=== PATIENT | female | born 1980 | race American Indian/Alaskan Native ===

== ENCOUNTER 2021-07-25 12:05 | Inpatient (IN) ==
[2021-07-25] MEDS ORDERED: ACETAMINOPHEN 325 MG TABLET PO PRN (16:35)
[2021-07-25] MEDS ORDERED: GLUCAGON 1 MG VIAL IM PRN ×2 (16:35)
[2021-07-25] MEDS ORDERED: MORPHINE 2 MG/1 ML SYRINGE IV PRN (16:35)
[2021-07-25] MEDS ORDERED: DEXTROSE 50% 25 GM/50 ML VIAL IV PRN (16:35)
[2021-07-25] MEDS ORDERED: ONDANSETRON 4 MG/2 ML VIAL IV PRN (16:35)
[2021-07-25] MEDS ORDERED: PROMETHAZINE 25 MG/1 ML VIAL IM PRN (16:35)
[2021-07-25 17:36] LABS: Basophils # 0.1 10*3/uL (0.0-0.2); Basophils % 0.4 % (0.0-0.8); Eosinophils % 0.3 % (0.00-10.9); Hematocrit 31.1 VOL% (35.7-47.0); Hemoglobin 10.3 GM/DL (12.0-16.0); Immature Granulocytes % 0.5 %; Immature Granulocytes Absolute 0.06 #; Lymphocytes % 16.9 % (21.3-54.2); Mean Corpuscular HGB Conc 33.1 GM/DL (32-36); Mean Corpuscular Volume 85.9 FL (87-102); Mean Platelet Volume 8.9 FL (9.6-12.0); Monocytes # 0.6 10*3/uL (0.11-0.8); Monocytes % 4.7 % (1.7-12.7); Neutrophils % 77.2 % (38.7-73.9); Platelet Count 468 T/CUMM (130-400); Red Blood Count 3.62 MC/CUMM (3.8-5.5); Red Cell Distribution Width 13.4 % (9.3-17.3); White Blood Count 11.6 T/CUMM (4-12)
[2021-07-25 17:57] LABS: Osmolality,Calculated 294.3 MOS/KG (273-304); Potassium 3.4 MMOL/L (3.5-5.1)
[2021-07-25 18:20] LABS: % Iron Saturation 14.2 % (18-50)
[2021-07-25] MEDS ORDERED: DEXTROSE 10% 250 ML BAG IV PRN (18:43)
[2021-07-25] MEDS ORDERED: POTASSIUM CHLORIDE 20 MEQ TABLET PO ONE (19:00)
[2021-07-25] MEDS ORDERED: FUROSEMIDE 40 MG/4 ML VIAL IV SCH (19:00)
[2021-07-25] MEDS: HEPARIN 5,000 UNIT/1 ML VIAL SUBCUT SCH (19:40)
[2021-07-25] MEDS: INSULIN LISPRO 100 UNIT/ML SUBCUT SCH (21:32)
[2021-07-25] MEDS: hydrALAZINE 20 MG/1 ML VIAL IV PRN (22:19)
[2021-07-25 22:34] LABS: Glucose,Urine (UA) 250 mg/dL (Negative); Protein,Urine >=300 mg/dL (Negative); Urine Appearance Clear (Clear); Urine Color Yellow (Yellow); Urine Specific Gravity 1.025 (1.001-1.035)
[2021-07-25 22:35] LABS: Bilirubin,Urine Negative (Negative); Blood, Urine Small mg/dL (Negative); Ketones,Urine Trace mg/dL (Negative); Nitrite,Urine Negative (Negative); Urine Urobilinogen 0.2 eU/dL (<2.0)
[2021-07-25 22:37] LABS: RBC,Urine 8 /HPF (0-4); Squamous Epithelial Cell,Urine Occasional /HPF (0-10)
[2021-07-26 05:31] LABS: Basophils % 0.5 % (0.0-0.8); Eosinophils # 0.1 10*3/uL (0.0-0.87); Eosinophils % 1.7 % (0.00-10.9); Hematocrit 27.4 VOL% (35.7-47.0); Immature Granulocytes % 0.4 %; Immature Granulocytes Absolute 0.03 #; Lymphocytes # 1.8 10*3/uL (1.4-4.0); Mean Corpuscular HGB Conc 32.8 GM/DL (32-36); Mean Corpuscular Volume 87.3 FL (87-102); Mean Platelet Volume 9.1 FL (9.6-12.0); Monocytes # 0.6 10*3/uL (0.11-0.8); Monocytes % 7.4 % (1.7-12.7); Platelet Count 421 T/CUMM (130-400); Red Blood Count 3.14 MC/CUMM (3.8-5.5); Red Cell Distribution Width 13.6 % (9.3-17.3); White Blood Count 8.2 T/CUMM (4-12)
[2021-07-26 05:54] LABS: Alanine Aminotransferase 19 U/L (13-56); Albumin 2.1 G/DL (3.4-5.0); Alkaline Phosphatase 72 U/L (45-117); Aspartate Amino Transferase 11 U/L (0-37); Bilirubin,Total < 0.39 MG/DL (0.20-1.00); Blood Urea Nitrogen 36 MG/DL (7-18); Calcium 7.9 MG/DL (8.5-10.1); Carbon Dioxide 23 MMOL/L (21-32); Chloride 110 MMOL/L (98-107); Glucose 135 MG/DL (74-106); Osmolality,Calculated 292.1 MOS/KG (273-304); Potassium 3.4 MMOL/L (3.5-5.1); Sodium 142 MMOL/L (136-145); Total Protein 6.1 G/DL (6.4-8.2)
[2021-07-26] MEDS: HEPARIN 5,000 UNIT/1 ML VIAL SUBCUT SCH ×2 (06:08→17:05)
[2021-07-26] MEDS: PANTOPRAZOLE 40 MG TABLET PO SCH (06:08)
[2021-07-26] MEDS: INSULIN LISPRO 100 UNIT/ML SUBCUT SCH ×4 (07:34→21:35)
[2021-07-26] MEDS ORDERED: POTASSIUM CHLORIDE 20 MEQ TABLET PO ONE (07:57)
[2021-07-26] MEDS: DOCUSATE SODIUM 100 MG CAPSULE PO PRN (08:39)
[2021-07-26] MEDS ORDERED: ISOSORBIDE MONONITRATE 30 MG TABLET PO SCH (09:00)
[2021-07-26] MEDS ORDERED: hydrALAZINE 25 MG TABLET PO SCH (09:00)
[2021-07-26] MEDS: hydrALAZINE 25 MG TABLET PO SCH ×3 (09:47→21:34)
[2021-07-26] MEDS: POLYETHYLENE GLYCOL POWDER 17 GM PACK PO SCH (10:39)
[2021-07-26] MEDS ORDERED: carvediloL 6.25 MG TABLET PO SCH (11:00)
[2021-07-26] MEDS: hydrALAZINE 20 MG/1 ML VIAL IV PRN (11:27)
[2021-07-26] MEDS ORDERED: BISACODYL 10 MG SUPP RECTAL PRN (13:51)
[2021-07-26] MEDS ORDERED: BISACODYL 10 MG SUPP RECTAL ONE (14:30)
[2021-07-26] MEDS ORDERED: amLODIPine 2.5 MG TABLET PO ONE (16:06)
[2021-07-26 18:27] LABS: Barbiturates Screen,Urine Negative (Negative); Benzodiazepines Screen,Urine Negative (Negative); Cannabinoid Screen,Urine Negative (Negative); Opiate Screen,Urine Negative (Negative); Phencyclidine Screen,Urine Negative (Negative)
[2021-07-26 18:37] LABS: Protein/Creatinine Ratio,Urine 7.3 RATIO
[2021-07-26] MEDS ORDERED: INSULIN GLARGINE 100 UNIT/ML SUBCUT SCH (21:00)
[2021-07-26] MEDS: NEBIVOLOL 5 MG TABLET PO SCH (21:34)
[2021-07-26] MEDS: ISOSORBIDE DINITRATE 20 MG TABLET PO SCH (21:34)
[2021-07-27 05:18] LABS: Basophils % 0.4 % (0.0-0.8); Eosinophils # 0.2 10*3/uL (0.0-0.87); Eosinophils % 2.6 % (0.00-10.9); Hematocrit 25.6 VOL% (35.7-47.0); Hemoglobin 8.3 GM/DL (12.0-16.0); Immature Granulocytes % 0.4 %; Immature Granulocytes Absolute 0.03 #; Lymphocytes # 2.2 10*3/uL (1.4-4.0); Lymphocytes % 27.8 % (21.3-54.2); Mean Corpuscular HGB Conc 32.4 GM/DL (32-36); Mean Corpuscular Volume 89.5 FL (87-102); Mean Platelet Volume 9.2 FL (9.6-12.0); Monocytes # 0.7 10*3/uL (0.11-0.8); Monocytes % 8.7 % (1.7-12.7); Neutrophils % 60.1 % (38.7-73.9); Platelet Count 371 T/CUMM (130-400); Red Blood Count 2.86 MC/CUMM (3.8-5.5); Red Cell Distribution Width 13.4 % (9.3-17.3); White Blood Count 7.7 T/CUMM (4-12)
[2021-07-27 05:41] LABS: Osmolality,Calculated 287.5 MOS/KG (273-304); Potassium 3.9 MMOL/L (3.5-5.1); Risk Ratio 4.98; VLDL Cholesterol 49.6 MG/DL
[2021-07-27] MEDS: DOCUSATE SODIUM 100 MG CAPSULE PO PRN (05:55)
[2021-07-27] MEDS: HEPARIN 5,000 UNIT/1 ML VIAL SUBCUT SCH ×2 (05:55→17:03)
[2021-07-27] MEDS: PANTOPRAZOLE 40 MG TABLET PO SCH (06:15)
[2021-07-27] MEDS: INSULIN LISPRO 100 UNIT/ML SUBCUT SCH ×4 (08:02→20:33)
[2021-07-27] MEDS: POLYETHYLENE GLYCOL POWDER 17 GM PACK PO SCH (08:55)
[2021-07-27] MEDS: NEBIVOLOL 5 MG TABLET PO SCH ×2 (08:58→20:33)
[2021-07-27] MEDS: amLODIPine 2.5 MG TABLET PO SCH (08:58)
[2021-07-27] MEDS: ISOSORBIDE DINITRATE 20 MG TABLET PO SCH ×3 (08:58→20:33)
[2021-07-27] MEDS: ROSUVASTATIN 20 MG TABLET PO SCH (08:58)
[2021-07-27] MEDS: hydrALAZINE 25 MG TABLET PO SCH ×3 (09:00→20:33)
[2021-07-27] MEDS: INSULIN GLARGINE 100 UNIT/ML SUBCUT SCH (20:33)
[2021-07-28] MEDS: PANTOPRAZOLE 40 MG TABLET PO SCH (06:19)
[2021-07-28] MEDS: HEPARIN 5,000 UNIT/1 ML VIAL SUBCUT SCH ×2 (06:19→21:22)
[2021-07-28] MEDS: POLYETHYLENE GLYCOL POWDER 17 GM PACK PO SCH (08:30)
[2021-07-28] MEDS: NEBIVOLOL 5 MG TABLET PO SCH ×2 (08:31→21:21)
[2021-07-28] MEDS: hydrALAZINE 25 MG TABLET PO SCH ×3 (08:31→21:21)
[2021-07-28] MEDS: ISOSORBIDE DINITRATE 20 MG TABLET PO SCH ×3 (08:31→21:21)
[2021-07-28] MEDS: amLODIPine 2.5 MG TABLET PO SCH (08:31)
[2021-07-28] MEDS: INSULIN LISPRO 100 UNIT/ML SUBCUT SCH ×4 (08:31→21:00)
[2021-07-28] MEDS: ROSUVASTATIN 20 MG TABLET PO SCH (08:31)
[2021-07-28] MEDS: DOCUSATE SODIUM 100 MG CAPSULE PO PRN (14:18)
[2021-07-28 15:31] LABS: Calcium 7.9 MG/DL (8.5-10.1); Osmolality,Calculated 277.5 MOS/KG (273-304); Potassium 4.5 MMOL/L (3.5-5.1)
[2021-07-28] MEDS: INSULIN GLARGINE 100 UNIT/ML SUBCUT SCH (21:21)
[2021-07-29 05:29] LABS: Basophils % 0.5 % (0.0-0.8); Eosinophils # 0.2 10*3/uL (0.0-0.87); Eosinophils % 2.5 % (0.00-10.9); Hematocrit 24.4 VOL% (35.7-47.0); Hemoglobin 7.8 GM/DL (12.0-16.0); Immature Granulocytes % 0.6 %; Immature Granulocytes Absolute 0.05 #; Lymphocytes # 2.3 10*3/uL (1.4-4.0); Lymphocytes % 27.3 % (21.3-54.2); Mean Corpuscular Volume 89.4 FL (87-102); Mean Platelet Volume 9.4 FL (9.6-12.0); Monocytes # 0.8 10*3/uL (0.11-0.8); Monocytes % 9.1 % (1.7-12.7); Platelet Count 340 T/CUMM (130-400); Red Blood Count 2.73 MC/CUMM (3.8-5.5); Red Cell Distribution Width 13.3 % (9.3-17.3); White Blood Count 8.3 T/CUMM (4-12)
[2021-07-29 05:52] LABS: Calcium 7.2 MG/DL (8.5-10.1); Osmolality,Calculated 283.1 MOS/KG (273-304); Potassium 4.3 MMOL/L (3.5-5.1)
[2021-07-29] MEDS: PANTOPRAZOLE 40 MG TABLET PO SCH (05:52)
[2021-07-29 06:01] LABS: Calcium 7.5 MG/DL (8.5-10.1); Osmolality,Calculated 281.2 MOS/KG (273-304); Potassium 4.3 MMOL/L (3.5-5.1)
[2021-07-29] MEDS: INSULIN LISPRO 100 UNIT/ML SUBCUT SCH (08:22)
[2021-07-29] MEDS: POLYETHYLENE GLYCOL POWDER 17 GM PACK PO SCH (08:24)
[2021-07-29] MEDS: amLODIPine 2.5 MG TABLET PO SCH (08:25)
[2021-07-29] MEDS: NEBIVOLOL 5 MG TABLET PO SCH (08:25)
[2021-07-29] MEDS: hydrALAZINE 25 MG TABLET PO SCH (08:25)
[2021-07-29] MEDS: ROSUVASTATIN 20 MG TABLET PO SCH (08:25)
[2021-07-29] MEDS: HEPARIN 5,000 UNIT/1 ML VIAL SUBCUT SCH (08:26)
[2021-07-29] MEDS: ISOSORBIDE DINITRATE 20 MG TABLET PO SCH (08:26)
[2021-07-29 08:50] VITALS: BP 132/80
[2021-07-29] MEDS ORDERED: amLODIPine 2.5 MG TABLET PO ONE (11:00)
[2021-07-30] MEDS ORDERED: amLODIPine 5 MG TABLET PO SCH (09:00)
== END 2021-07-29 11:13 | disposition home or self-care (01) | DRG 682 ==
LOC: N.5E 15:50 → SUATTDRO 15:50
PROVIDERS: ADMIT Internal Medicine; ATTEND Internal Medicine

== ENCOUNTER 2021-12-05 08:23 | Observation (INO) ==
[2021-12-05 09:12] LABS: Hematocrit 26.2 VOL% (35.7-47.0); Hemoglobin 8.2 GM/DL (12.0-16.0)
[2021-12-05] MEDS ORDERED: PHENYLEPHRINE DRIP 20 MG/250 ML PREMIX IV ONE (10:04)
[2021-12-05] MEDS ORDERED: LIDOCAINE 2%/EPI 20 ML VIAL ONE (10:06)
[2021-12-05] MEDS ORDERED: BUPIVACAINE MPF 0.25% 10 ML VIAL ONE (10:06)
[2021-12-05] MEDS ORDERED: TISSUE ADHESIVE 1 EACH APPLICATOR TOP ONE (10:06)
[2021-12-05] MEDS ORDERED: ROCURONIUM 50 MG/5 ML VIAL IV ONE (10:11)
[2021-12-05] MEDS ORDERED: SEVOFLURANE 1 UNIT/15 MINUTE INH ONE ×2 (10:11→11:14)
[2021-12-05] MEDS ORDERED: LIDOCAINE 2% 5 ML VIAL ONE (10:11)
[2021-12-05] MEDS ORDERED: propofoL 200 MG/20 ML VIAL IV ONE (10:11)
[2021-12-05] MEDS ORDERED: fentaNYL 100 MCG/2 ML VIAL ONE (10:12)
[2021-12-05] MEDS ORDERED: KETAMINE 500 MG/10 ML VIAL ONE (10:12)
[2021-12-05] MEDS ORDERED: SODIUM CHLORIDE 0.9% 250 ML IV SCH (10:30)
[2021-12-05] MEDS ORDERED: MIDAZOLAM 2 MG/2 ML VIAL ONE (10:40)
[2021-12-05] MEDS ORDERED: ePHEDrine 50 MG/ML VIAL ONE (10:52)
[2021-12-05] MEDS ORDERED: ONDANSETRON 4 MG/2 ML VIAL ONE ×2 (10:57→12:21)
[2021-12-05] MEDS ORDERED: SUGAMMADEX 200 MG/2 ML VIAL IV ONE (11:10)
[2021-12-05] MEDS ORDERED: ALBUTEROL INHALER 18 GM INH ONE (11:32)
[2021-12-05] MEDS ORDERED: RACEPINEPHRINE 0.5 ML NEB RESP TX ONE (11:59)
[2021-12-05] MEDS ORDERED: GLYCOPYRROLATE 0.4 MG/2 ML VIAL ONE (12:01)
[2021-12-05] MEDS ORDERED: SUCCINYLCHOLINE 200 MG/10 ML VIAL ONE (12:01)
[2021-12-05] MEDS ORDERED: hydrALAZINE 20 MG/1 ML VIAL ONE (12:15)
[2021-12-05] MEDS ORDERED: hydrALAZINE 20 MG/1 ML VIAL IV ONE (12:16)
[2021-12-05] MEDS ORDERED: ONDANSETRON 4 MG/2 ML VIAL IV PRN (12:19)
[2021-12-05] MEDS ORDERED: diphenhydrAMINE 50 MG/1 ML VIAL IV PRN (12:19)
[2021-12-05] MEDS ORDERED: MEPERIDINE 25 MG/1 ML VIAL IV PRN (12:19)
[2021-12-05] MEDS ORDERED: PROMETHAZINE INJ 25 MG in SODIUM CHLORIDE 0.9% 50 ML IV PRN (12:19)
[2021-12-05] MEDS ORDERED: HYDROmorphone 1 MG/1 ML SYRINGE ONE (12:21)
[2021-12-05] MEDS: HYDROmorphone 1 MG/1 ML SYRINGE IV PRN ×2 (12:25→12:30)
[2021-12-05 12:50] LABS: Alanine Aminotransferase 23 U/L (13-56); Albumin 2.7 G/DL (3.4-5.0); Alkaline Phosphatase 192 U/L (45-117); Aspartate Amino Transferase 20 U/L (0-37); Bilirubin,Total < 0.39 MG/DL (0.20-1.00); Blood Urea Nitrogen 78 MG/DL (7-18); Calcium 7.5 MG/DL (8.5-10.1); Carbon Dioxide 13 MMOL/L (21-32); Chloride 112 MMOL/L (98-107); Glucose 136 MG/DL (74-106); Sodium 136 MMOL/L (136-145); Total Protein 7.5 G/DL (6.4-8.2)
[2021-12-05 12:59] LABS: Potassium 6.4 MMOL/L (3.5-5.1)
[2021-12-05] MEDS ORDERED: FUROSEMIDE 40 MG/4 ML VIAL IV STA (14:41)
[2021-12-05] MEDS ORDERED: ONDANSETRON 4 MG/2 ML VIAL IV STA (14:41)
[2021-12-05] MEDS ORDERED: SODIUM BICARBONATE 50 MEQ/50 ML VIAL IV ONE (15:00)
[2021-12-05] MEDS ORDERED: FUROSEMIDE 20 MG/2 ML VIAL ONE (15:05)
[2021-12-05 16:39] LABS: Calcium 7.4 MG/DL (8.5-10.1); Osmolality,Calculated 302.5 MOS/KG (273-304)
[2021-12-05 16:48] LABS: Potassium 6.1 MMOL/L (3.5-5.1)
[2021-12-05] MEDS ORDERED: DEXTROSE 10% 250 ML BAG IV PRN (17:24)
[2021-12-05] MEDS ORDERED: GLUCAGON 1 MG VIAL IM PRN (17:24)
[2021-12-05] MEDS ORDERED: traZODone 50 MG TABLET PO PRN (17:24)
[2021-12-05] MEDS ORDERED: hydrALAZINE 20 MG/1 ML VIAL IV PRN (17:24)
[2021-12-05] MEDS ORDERED: DOCUSATE SODIUM 100 MG CAPSULE PO PRN (17:24)
[2021-12-05] MEDS ORDERED: ACETAMINOPHEN 325 MG TABLET PO PRN (17:24)
[2021-12-05 18:23] LABS: Amorphous Crystals,Urine Occasional /HPF (Few); RBC,Urine 2 /HPF (0-4); Squamous Epithelial Cell,Urine Occasional /HPF (0-10)
[2021-12-05 18:24] LABS: Urine Appearance Clear (Clear); Urine Color Yellow (Yellow)
[2021-12-05 18:25] LABS: Bilirubin,Urine Negative (Negative); Blood, Urine Trace mg/dL (Negative); Glucose,Urine (UA) 100 mg/dL (Negative); Ketones,Urine Negative (Negative); Nitrite,Urine Negative (Negative); Protein,Urine >=300 mg/dL (Negative); Urine Urobilinogen 0.2 eU/dL (<2.0); Urine pH 5.5 (4.5-8.0)
[2021-12-05] MEDS: INSULIN REGULAR 100 UNIT/ML SUBCUT SCH (20:54)
[2021-12-05] MEDS ORDERED: PHENOL 1.4% THROAT SPRAY 177 ML BOTTLE PO PRN (21:06)
[2021-12-05] MEDS: hydrALAZINE 25 MG TABLET PO SCH (21:25)
[2021-12-05] MEDS: SODIUM ZIRCONIUM CYCLOSILICATE 10 GM PACK PO SCH (21:25)
[2021-12-05] MEDS: SODIUM BICARBONATE 650 MG TABLET PO SCH (21:25)
[2021-12-05] MEDS: ISOSORBIDE DINITRATE 20 MG TABLET PO SCH (21:25)
[2021-12-05] MEDS: NEBIVOLOL 5 MG TABLET PO SCH (21:25)
[2021-12-05] MEDS ORDERED: PHENOL 1.4% THROAT SPRAY 177 ML BOTTLE PO ONE (21:30)
[2021-12-06] MEDS: ONDANSETRON 4 MG/2 ML VIAL IV PRN ×2 (00:41→06:01)
[2021-12-06] MEDS: PANTOPRAZOLE 40 MG TABLET PO SCH (05:53)
[2021-12-06 06:02] LABS: Basophils % 0.5 % (0.0-0.8); Eosinophils # 0.1 10*3/uL (0.0-0.87); Eosinophils % 1.6 % (0.00-10.9); Hematocrit 25.6 VOL% (35.7-47.0); Hemoglobin 7.9 GM/DL (12.0-16.0); Immature Granulocytes % 1.1 %; Immature Granulocytes Absolute 0.09 #; Lymphocytes # 1.1 10*3/uL (1.4-4.0); Lymphocytes % 13.4 % (21.3-54.2); Mean Corpuscular HGB Conc 30.9 GM/DL (32-36); Mean Corpuscular Volume 89.8 FL (87-102); Mean Platelet Volume 8.9 FL (9.6-12.0); Monocytes # 0.8 10*3/uL (0.11-0.8); Monocytes % 10.1 % (1.7-12.7); Neutrophils % 73.3 % (38.7-73.9); Platelet Count 321 T/CUMM (130-400); Red Blood Count 2.85 MC/CUMM (3.8-5.5); Red Cell Distribution Width 17.7 % (9.3-17.3)
[2021-12-06 06:15] LABS: Alanine Aminotransferase 20 U/L (13-56); Albumin 2.6 G/DL (3.4-5.0); Alkaline Phosphatase 160 U/L (45-117); Aspartate Amino Transferase 13 U/L (0-37); Bilirubin,Total < 0.39 MG/DL (0.20-1.00); Blood Urea Nitrogen 84 MG/DL (7-18); Calcium 7.7 MG/DL (8.5-10.1); Carbon Dioxide 17 MMOL/L (21-32); Chloride 110 MMOL/L (98-107); Glucose 94 MG/DL (74-106); Osmolality,Calculated 304.4 MOS/KG (273-304); Potassium 5.7 MMOL/L (3.5-5.1); Sodium 140 MMOL/L (136-145); Total Protein 6.8 G/DL (6.4-8.2)
[2021-12-06] MEDS ORDERED: PNEUMOCOCCAL VACCINE (13 VALENT) 0.5 ML SYRINGE IM ONE (09:00)
[2021-12-06] MEDS ORDERED: amLODIPine 2.5 MG TABLET PO SCH (09:00)
[2021-12-06] MEDS ORDERED: INFLUENZA VIRUS VACCINE 0.5 ML SYRINGE IM ONE (09:00)
[2021-12-06] MEDS ORDERED: SODIUM POLYSTYRENE SULFATE 15 GM/60 ML BOTTLE PO ONE (09:15)
[2021-12-06] MEDS: SODIUM ZIRCONIUM CYCLOSILICATE 10 GM PACK PO SCH ×3 (09:16→22:00)
[2021-12-06] MEDS: NEBIVOLOL 5 MG TABLET PO SCH ×2 (09:16→21:59)
[2021-12-06] MEDS: ISOSORBIDE DINITRATE 20 MG TABLET PO SCH ×3 (09:16→21:59)
[2021-12-06] MEDS: ROSUVASTATIN 20 MG TABLET PO SCH (09:16)
[2021-12-06] MEDS: POLYETHYLENE GLYCOL POWDER 17 GM PACK PO SCH (09:16)
[2021-12-06] MEDS: SODIUM BICARBONATE 650 MG TABLET PO SCH ×3 (09:16→21:59)
[2021-12-06] MEDS: hydrALAZINE 25 MG TABLET PO SCH ×2 (09:16→16:11)
[2021-12-06] MEDS: INSULIN REGULAR 100 UNIT/ML SUBCUT SCH ×4 (10:15→22:00)
[2021-12-06] MEDS: HEPARIN 5,000 UNIT/1 ML VIAL SUBCUT SCH (18:02)
[2021-12-07 05:52] LABS: Basophils % 0.4 % (0.0-0.8); Eosinophils # 0.3 10*3/uL (0.0-0.87); Eosinophils % 4.6 % (0.00-10.9); Hematocrit 23.8 VOL% (35.7-47.0); Hemoglobin 7.3 GM/DL (12.0-16.0); Immature Granulocytes % 0.5 %; Immature Granulocytes Absolute 0.04 #; Lymphocytes # 1.1 10*3/uL (1.4-4.0); Lymphocytes % 15.4 % (21.3-54.2); Mean Corpuscular HGB Conc 30.7 GM/DL (32-36); Mean Corpuscular Volume 88.8 FL (87-102); Mean Platelet Volume 8.7 FL (9.6-12.0); Monocytes # 0.8 10*3/uL (0.11-0.8); Monocytes % 10.5 % (1.7-12.7); Neutrophils % 68.6 % (38.7-73.9); Platelet Count 299 T/CUMM (130-400); Red Blood Count 2.68 MC/CUMM (3.8-5.5); Red Cell Distribution Width 17.7 % (9.3-17.3); White Blood Count 7.3 T/CUMM (4-12)
[2021-12-07 06:06] LABS: Calcium 7.4 MG/DL (8.5-10.1); Osmolality,Calculated 302.5 MOS/KG (273-304); Potassium 4.8 MMOL/L (3.5-5.1)
[2021-12-07] MEDS: HEPARIN 5,000 UNIT/1 ML VIAL SUBCUT SCH (06:08)
[2021-12-07] MEDS: PANTOPRAZOLE 40 MG TABLET PO SCH (06:09)
[2021-12-07] MEDS ORDERED: amLODIPine 10 MG TABLET PO SCH (09:00)
[2021-12-07] MEDS: ROSUVASTATIN 20 MG TABLET PO SCH (09:07)
[2021-12-07] MEDS: SODIUM ZIRCONIUM CYCLOSILICATE 10 GM PACK PO SCH ×2 (09:07→15:43)
[2021-12-07] MEDS: NEBIVOLOL 5 MG TABLET PO SCH (09:07)
[2021-12-07] MEDS: POLYETHYLENE GLYCOL POWDER 17 GM PACK PO SCH (09:07)
[2021-12-07] MEDS: SODIUM BICARBONATE 650 MG TABLET PO SCH ×2 (09:07→15:43)
[2021-12-07] MEDS: ISOSORBIDE DINITRATE 20 MG TABLET PO SCH ×2 (09:07→15:43)
[2021-12-07] MEDS: INSULIN REGULAR 100 UNIT/ML SUBCUT SCH ×3 (10:47→17:18)
[2021-12-07 15:43] VITALS: BP 179/94
== END 2021-12-07 18:25 | disposition home or self-care (01) ==
LOC: SUATTDRO → N.OR 08:23 → N.SDSINP 08:23 → N.3E 18:14 → N.OR 12-07 18:25 → N.3E 12-08 05:31
PROVIDERS: ADMIT Surgery; ATTEND Surgery